=== PATIENT | female | born 1980 | race Hispanic/Latino ===

== ENCOUNTER 2017-01-25 13:12 | Day surgery (SDC) | payer MEDICAID ==
--- NOTE | 2017-01-25 14:06 | Anesthesia Consultation ---
Anesthesia Consult and Med Hx Date of service: 01/25/17 - Airway Anesthetic Teeth Evaluation: Good, Chipped (back teeth) ROM Head & Neck: Adequate Mental/Hyoid Distance: Adequate Mallampati Class: Class I Intubation Access Assessment: Probably Good - Pulmonary Exam CTA: Yes - Cardiac Exam Cardiac Exam: RRR - Pre-Operative Health Status ASA Pre-Surgery Classification: ASA3 Proposed Anesthetic Plan: General - Pulmonary Hx Smoking: Yes (1/2 PPD X 15 YRS) SOB: Yes (SOB) Hx Sleep Apnea: (RUTHIE PRE SCREEN NEGATIVE) - Cardiovascular System Hx Hypertension: Yes (MED INDUCED- STOPPED MEDS , NOW NO PROBLEMS) - Central Nervous System Hx Back Pain: Yes Hx Psychiatric Problems: Yes (depression) - Hematic Hx Anemia: Yes (HX ENLARGED SPLEEN/LYMPH NODES-GETTING FOLLOW UP) - Other Systems Hx Cancer: No - Additional Comments Anesthesia Medical History Comments: extensive surgical history. 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 2012 Bowl obstruction,x7, fixed. pelvic prolaps x4. PONV and feels like "cant breath" when wakes up from anesthesia, needs O2
--- NOTE | 2017-01-25 14:07 | Anesthesia Day of Surgery ---
Anesthesia Day of Surgery - Day of Surgery Patient Examined: Yes Patient H&P Reviewed: Yes Patient is NPO: Yes
[2017-01-25] MEDS ORDERED: DILAUDID IV ONE (14:08)
[2017-01-25] MEDS ORDERED: VERSED IV NR (15:00)
[2017-01-25] MEDS ORDERED: ANCEF/STERILE WATER 2 GM/20 ML IV NR (15:00)
[2017-01-25] MEDS ORDERED: PEPCID IV NR (15:00)
[2017-01-25] MEDS ORDERED: NACL 0.9% 1000 ML 1,000 ML IV SCH (15:00)
[2017-01-25] MEDS ORDERED: DECADRON ONE (15:23)
[2017-01-25] MEDS ORDERED: DIPRIVAN 10 MG/ML IV ONE (15:24)
[2017-01-25] MEDS ORDERED: XYLOCAINE MPF 2% ONE (15:24)
[2017-01-25] MEDS ORDERED: ZOFRAN ONE ×2 (15:24→17:37)
[2017-01-25] MEDS ORDERED: DILAUDID ONE ×2 (15:24→17:33)
[2017-01-25] MEDS ORDERED: NACL 0.9% 1000 ML 0 ML ONE (15:30)
--- NOTE | 2017-01-25 15:30 | Short Stay Summary ---
Short Stay Documentation Date of service: 01/25/17 - History H&P: obtained from office - Allergies and Medications Current Medications: Allergies hydrocodone bitartrate [From Lortab] Allergy (Verified 01/22/17 16:10) ANXIETY meperidine HCl [From Demerol] Allergy (Verified 12/03/13 10:04) Hives morphine Allergy (Verified 01/22/17 16:11) PAIN STATES DOES NOT WORK- PT REQUEST NOT TO RECEIVE Home Medications Medication Instructions Recorded Confirmed Last Taken Type oxyCODONE /ACETAMINOPHEN [Percocet 1 tab PO Q6HR PRN #20 tab 12/03/13 01/22/17 Unknown Rx 5/325 mg] Aspirin/Acetaminophen/Caffeine 1 each PO PRN PRN 01/22/17 01/22/17 Unknown History [Uzair's Ex-Str Powder Packet] Divalproex Dr [DepaKOTE DR] 250 mg PO QHS 01/22/17 01/22/17 Unknown History Ondansetron [Zofran] 4 mg PO PRN PRN 01/22/17 01/22/17 Unknown History Prochlorperazine [Compazine] 10 mg PO PRN PRN 01/22/17 01/22/17 Unknown History traZODone [Desyrel] 100 mg PO QHS 01/22/17 01/22/17 Unknown History Active Medications Cefazolin Sodium (Ancef/Sterile Water 2 Gm/20 Ml) 2 gm IV PREOP NR Stop: 01/25/17 23:59 Famotidine (Pepcid) 20 mg IV PREOP NR Stop: 01/25/17 23:59 Last Admin: 01/25/17 14:28 Dose: 20 mg Sodium Chloride (Nacl 0.9% 1000 Ml) 1,000 mls @ 125 mls/hr IV DIRECT NIKKI Last Admin: 01/25/17 14:28 Dose: 125 mls/hr Midazolam HCl (Versed) 2 mg IV PREOP NR Stop: 01/25/17 23:59 Last Admin: 01/25/17 14:30 Dose: 2 mg - Brief post op/procedure progress note Date of procedure: 01/25/17 Pre-op diagnosis: alma complete duplicate ureters, right upper pole ureter distal stone Post-op diagnosis: same Procedure: cysto, rpg; right upper pole medial/more cephalad uo stent 6x28 Anesthesia: GETA Findings: right caudad/lat uo to lower pole right cephalad/med uo to upper pole w/ hydro left more caudald/lateral uo to upperple left more cephalad/medial uo to lower pole stonel likely at junction of ureter to bladder Surgeon: RAMSEY BELTRNA Estimated blood loss: minimal Specimen disposition: to lab Condition: stable - Hospital course Hospital course: orpacuhome - Disposition Condition at discharge: Good Disposition: DISCHARGED TO HOME OR SELFCARE Short Stay Discharge Plan Activity: advance as tolerated Diet: advance as tolerated Follow up with: RAMSEY BELTRAN MD [Staff Physician] - 3 Days Prescriptions: Cefuroxime Axetil [Ceftin] 500 mg PO Q12H #14 tablet oxyCODONE /ACETAMINOPHEN [Percocet 5/325 mg] 1 tab PO Q6HR PRN #25 tablet PRN Reason: Pain
[2017-01-25] MEDS ORDERED: OMNIPAQUE 300 MG/50 ML (CATH LAB) IV ONE (16:20)
[2017-01-25] MEDS ORDERED: WATER FOR IRRIG STERILE IR ONE (16:20)
[2017-01-25] MEDS ORDERED: TORADOL ONE (17:05)
--- NOTE | 2017-01-25 17:41 | Post Anesthesia Evaluation ---
- Post Anesthesia Evaluation Patient Participated: Yes Airway Patent: Yes Stable Respiratory Function: Yes Temp > 96.8F: Yes Pain Manageable: Yes Adequeate Hydration: Yes Anesthesia Complications: No Block Receding Appropriately: Not Applicable
[2017-01-25] MEDS ORDERED: ZOFRAN IV PRN (17:44)
[2017-01-25] MEDS ORDERED: DILAUDID IV PRN (17:44)
[2017-01-25 21:14] VITALS: BP 128/86
--- NOTE | 2017-01-26 09:25 | Fluoroscopy Report ---
FLUOROSCOPIC IMAGES AT BILATERAL RETROGRADE PYELOGRAM FIFTEEN VIEWS: CLINICAL: Right ureteral stone. FINDINGS: Mower Sharpener images demonstrate a distal right ureteral calculus. Subsequent images demonstrate opacification of of a mildly dilated right intrarenal collecting system and ureter. A duplicated but otherwise normal left intrarenal collecting system and left ureter. For more detail, please refer to the operative report.
--- NOTE | 2017-01-28 14:11 | Operative Report ---
PREOPERATIVE DIAGNOSES: 1. History of vesicoureteral reflux and opened reimplantation. 2. Bilateral complete duplications of ureters. 3. Bilateral low back pain. 4. Right upper pole likely chronic hydro with minimal function. 5. Right distal ureteral stone. POSTOPERATIVE DIAGNOSES: 1. History of vesicoureteral reflux and opened reimplantation. 2. Bilateral complete duplications of ureters. 3. Bilateral low back pain. 4. Right upper pole likely chronic hydro with minimal function. 5. Right distal ureteral stone. PROCEDURE: Cystoscopy, bilateral RPGs for ureters, right stent placement to the upper pole ureter, which was more medial. Staged for future treatment of stone, staged for future stents, staged for future surgeries. CLINICAL INDICATIONS: The patient was counseled on RCBA, antibiotics, SCDs. The patient has a history of having bilateral low back pain, intermittently for over a year, but seems to be greater on the right. She does think this has been chronic. She states that she has been having possible recurrent infections over the 1-2 period of time associated with the pain. She definitely had no history of some isolated one-sided pain, presented for evaluation, was found to have ___ lower pole with good parenchyma on the right side, upper pole with minimal parenchyma. Nuclear renal scan was performed. This was evaluated with the radiologist, who felt that the upper pole had minimal to no function on the nuclear renal scan with the correlating left side being 75%, right 25% and at most has a 25% function was most likely where the parenchyma was. No hydro, which was in the lower pole of the right kidney. She was counseled on the options including nephrostomy tubes, stent placement, understands that this may not change her pain or other symptoms and understands that there may not be any recovery of function of the upper pole kidney. Options were also talked about including tertiary care evaluation, observation and other. She understands and desires to proceed. DESCRIPTION OF PROCEDURE: The patient was transferred to OR suite in supine position, anesthesia, dorsal lithotomy, prepped and draped in standard fashion. A 20-German scope passed. Pancystoscopy 30 and 70 degree lens, no tumors or lesions or other abnormality. Left UO was cannulated. There were two left ureteral orifices and two right ureteral orifices. These were more laterally displaced than the [place] ureteral orifices that were visualized likely to the surgery she had as a child for bilateral vesicoureteral reflux. At this point, the left retrograde for the more medial cephalad ureteral orifice showed no obstruction and went to a lower pole segment, the more lateral caudad ureteral orifice was injected and this went to the upper pole segment. On the left side, the upper and lower pole and ureters had no hydro or filling defects. On the right side contrast was injected in the more lateral ureteral orifice, which actually was with ro went to the lower pole with maybe some fullness on that lower pole segment, but appeared that it did seem to drain on that delayed imaging. Contrast injected to that lower pole and this was more medial cephalad ureteral orifice and this went to the upper pole ureter. This easily can, see contrast going around the stone, which was just in the bladder just above the bladder and then contrast going above. A Glidewire was passed up to the upper pole. There was no debris or infection noted. A 5-German open-ended catheter was passed in the upper pole and aspirated. There was no significant debris or infectious debris at all. At this point, the wire was placed, confirmed our position with contrast, which had been injected into the system after initially we aspirated approximately 30 plus mL right out of the right upper pole system and then injected some contrast. Glidewire was placed. A 5-German open-ended removed. A 6 x 20 double J was passed over the wire under direct and fluoroscopic visualization. When wire and string was removed, nice proximal and distal J. Distal ports seemed to be effluxing contrast. At this point, the bladder was drained. Exam under anesthesia, no palpable urethral masses. The patient awakened and transferred to the PACU in good and stable condition. JOB# [id number] ATS/NTS
== END 2017-01-25 18:50 | disposition home or self-care (01) ==
LOC: OR 13:12
PROVIDERS: ATTEND Urology
DX: N20.1 Calculus of ureter (principal); Q62.5 Duplication of ureter; I10 Essential (primary) hypertension; F32.9 Major depressive disorder, single episode, unspecified; F17.210 Nicotine dependence, cigarettes, uncomplicated; D64.9 Anemia, unspecified; Z87.440 Personal history of urinary (tract) infections; Z88.5 Allergy status to narcotic agent; Z98.890 Other specified postprocedural states; Z79.899 Other long term (current) drug therapy; Z80.42 Family history of malignant neoplasm of prostate; Z80.1 Family history of malignant neoplasm of trachea, bronchus and lung; Z80.0 Family history of malignant neoplasm of digestive organs; Z80.49 Family history of malignant neoplasm of other genital organs
CPT/HCPCS: 52332; 74420; 81025; 87086; A4217; C1726; C1758; C1769; C2617; J0690; J1100; J1170; J1885; J2250; J2405; J2704; J7030; Q9967

== ENCOUNTER 2017-01-31 20:37 | Emergency (ER) | payer MEDICAID ==
[2017-01-31 21:57] LABS: Basophils % (Auto) 0.8 % (0.0-1.8); Eosinophils % (Auto) 1.3 % (0.0-4.3); Hematocrit 45.5 % (30.3-42.9); Hemoglobin 14.8 gm/dl (10.1-14.3); Mean Corpuscular HGB Conc 33 % (30-34); Mean Corpuscular Hemoglobin 27 pg (28-32); Mean Corpuscular Volume 83 fl (79-97); Platelet Count 239 K/mm3 (140-440); Red Blood Count 5.49 M/mm3 (3.65-5.03); Red Cell Distribution Width 14.3 % (13.2-15.2); White Blood Count 7.4 K/mm3 (4.5-11.0)
[2017-01-31 22:04] LABS: Alanine Aminotransferase 9 units/L (7-56); Albumin 4.6 g/dL (3.9-5); Albumin/Globulin Ratio 1.4 %; Alkaline Phosphatase 63 units/L (35-129); Anion Gap 17 mmol/L; Blood Urea Nitrogen 11 mg/dL (7-17); Calcium 9.4 mg/dL (8.4-10.2); Carbon Dioxide 26 mmol/L (22-30); Chloride 97.8 mmol/L (98-107); Glucose 107 mg/dL (65-100); Lipase 15 units/L (13-60); Potassium 3.8 mmol/L (3.6-5.0); Sodium 137 mmol/L (137-145); Total Protein 7.9 g/dL (6.3-8.2)
[2017-01-31 23:06] LABS: Bacteria,Urine 2+ /HPF (Negative); Bilirubin,Urine NEG (Negative); Blood,Urine LG (Negative); Ketones,Urine TR mg/dL (Negative); Leukocyte Esterase,Urine MOD (Negative); Mucus,Urine 2+ /HPF; Nitrite,Urine NEG (Negative); Urobilinogen,Urine < 2.0 mg/dL (<2.0)
[2017-01-31 23:08] LABS: RBC,Urine > 182.0 /HPF (0.0-6.0); WBC,Urine > 182.0 /HPF (0.0-6.0)
[2017-02-01] MEDS ORDERED: DILAUDID IV ONE ×2 (06:26→09:00)
[2017-02-01] MEDS ORDERED: ZOFRAN IV ONE (06:26)
--- NOTE | 2017-02-01 06:45 | Emergency Department Report ---
HPI - General Chief Complaint: Urogenital-Female Time Seen by Provider: 02/01/17 06:11 - HPI HPI: This is a 36-year-old who presents to the emergency department with complaint of extreme right flank pain. The patient has a history of a 10 mm stone found about 2 weeks ago. She says that she has a history of congenital double ureters and had a stent placement done on that right side by Dr. Dykes, her urologist, on January 25. However, the patient says that yesterday the pain increased in intensity to 10 out of 10. It worsens with urination and the patient says that she sees gross blood in the urine. She took a Percocet for her discomfort without any relief. She is currently on cefuroxime for antibiotics. She denies any fever, vaginal bleeding or discharge but certainly has dysuria. She is supposed to have her next surgery done this coming but says she cannot wait that long as the pain has increased. She called the urology office and was told to come [facility]. ED Past Medical Hx - Past Medical History Hx Hypertension: Yes (MED INDUCED- STOPPED MEDS , NOW NO PROBLEMS) Hx Headaches / Migraines: Yes (MIGRAINES) Hx Kidney Stones: Yes (BILATERAL) Additional medical history: intestinal blockage x 5 - Surgical History Additional Surgical History: 82% of intestine removed in 2010 - Social History Smoking Status: Never Smoker Substance Use Type: None - Medications Home Medications: Home Medications Medication Instructions Recorded Confirmed Last Taken Type oxyCODONE /ACETAMINOPHEN [Percocet 1 tab PO Q6HR PRN #20 tab 12/03/13 01/25/17 Unknown Rx 5/325 mg] Aspirin/Acetaminophen/Caffeine 1 each PO PRN PRN 01/22/17 01/25/17 01/24/17 20: 00 History [Uzair's Ex-Str Powder Packet] Divalproex Dr [Ora KILLIAN] 250 mg PO QHS 01/22/17 01/25/17 01/24/17 20:00 History Ondansetron [Zofran] 4 mg PO PRN PRN 01/22/17 01/25/17 01/24/17 20:00 History Prochlorperazine [Compazine] 10 mg PO PRN PRN 01/22/17 01/25/17 01/24/17 20:00 History traZODone [Desyrel] 100 mg PO QHS 01/22/17 01/25/17 01/24/17 20:00 History Cefuroxime Axetil [Ceftin] 500 mg PO Q12H #14 tablet 01/25/17 Unknown Rx oxyCODONE /ACETAMINOPHEN [Percocet 1 tab PO Q6HR PRN #25 tablet 01/25/17 Unknown Rx 5/325 mg] ED Review of Systems ROS: Stated complaint: STINT COMPLICATIONS/BLEEDING Other details as noted in HPI Comment: All other systems reviewed and negative Constitutional: denies: chills, fever Eyes: denies: eye pain, eye discharge, vision change Respiratory: denies: cough, shortness of breath, wheezing Cardiovascular: denies: chest pain, palpitations Gastrointestinal: abdominal pain (right flank pain), nausea. denies: vomiting Genitourinary: dysuria, hematuria Musculoskeletal: denies: joint swelling, arthralgia Neurological: denies: headache, weakness, paresthesias Physical Exam - Physical Exam Vital Signs: Vital Signs 01/31/17 02/01/17 02/01/17 21:27 04:56 06:15 Temperature 98.0 F 97.7 F Pulse Rate 111 H 97 H Respiratory 15 14 19 Rate Blood Pressure 126/93 Blood Pressure 125/86 [Right] O2 Sat by Pulse 99 97 99 Oximetry 02/01/17 06:24 Temperature 98.1 F Pulse Rate 104 H Respiratory 15 Rate Blood Pressure Blood Pressure 128/92 [Right] O2 Sat by Pulse 98 Oximetry Physical Exam: GENERAL: The patient is well-developed well-nourished. HEENT: Normocephalic. Atraumatic. Extraocular motions are intact. Patient has moist mucous membranes. Pupils equal reactive to light bilaterally. NECK: Supple. Trachea is midline. CHEST/LUNGS: Clear to auscultation. There is no respiratory distress noted. HEART/CARDIOVASCULAR: Regular. There is mild tachycardia. There is no gallop rub or murmur. ABDOMEN: Abdomen is soft. Patient is in discomfort but no tenderness to palpation. No guarding or rebound tenderness. Patient has normal bowel sounds. There is no abdominal distention. SKIN: Skin is warm and dry. NEURO: The patient is awake, alert, and oriented. The patient is cooperative. The patient has no focal neurologic deficits. The patient has normal speech. MUSCULOSKELETAL: There is no tenderness or deformity. There is no limitation range of motion. There is no evidence of acute injury. BACK: No midline thoracic or lumbar tenderness to palpation or deformity. Positive right CVA tenderness to palpation. ED Course Vital Signs 01/31/17 02/01/17 02/01/17 21:27 04:56 06:15 Temperature 98.0 F 97.7 F Pulse Rate 111 H 97 H Respiratory 15 14 19 Rate Blood Pressure 126/93 Blood Pressure 125/86 [Right] O2 Sat by Pulse 99 97 99 Oximetry 02/01/17 06:24 Temperature 98.1 F Pulse Rate 104 H Respiratory 15 Rate Blood Pressure Blood Pressure 128/92 [Right] O2 Sat by Pulse 98 Oximetry - Consultations Consultation #1: I spoke with after his initial, the urologist personnel director for Dr. Dykes, who says that the patient does not require admission for the CT findings and vitals and lab results and he recommends that the patient go straight to the office where Dr. Dykes will be all day and that they will take care of her. 02/01/17 09:01 ED Medical Decision Making - Lab Data Result diagrams: 01/31/17 21:33 01/31/17 21:33 - Radiology Data Radiology results: report reviewed CT of the abdomen and pelvis without contrast shows interval right ureteral stent placement with at least 2 small right distal ureteral calcifications noted adjacent to the stent. No significant ureteral dilatated show an, though mid right intrarenal collecting system fullness/hydronephrosis superiorly now seen with interval development of right renal atrophy/cortical thinning. Numerous small bilateral renal calculi. - Medical Decision Making This is a 36-year-old female who presents the emergency department with some hematuria, right flank pain and a known right ureter stone of about 1 cm. She recently had a stent placed by her urologist. Since the pain has increased today with increased hematuria, the patient had a reevaluation here including a CT of the abdomen and pelvis without contrast. The CT results show some right ureter stones that appear adjacent to the placed interval stent and some proximal hydronephrosis. On labs she does not have a leukocytosis or any renal insufficiency but her urinalysis does show a urinary tract infection with significant hematuria. She is already on antibiotics from urology and says that she has a resistance to most. I spoke with Dr. Sifuentes who did not feel that this patient required admission but recommended the patient go directly to Dr. Dykes's office today. Patient was given some pain and nausea control and we discussed her labs and imaging results and the plan for immediate follow-up with Dr. Dykes and the patient understands and agrees to the plan. She is currently waiting for her mother to pick her up to take her to urology. There is some mild tachycardia but otherwise vital signs up in stable throughout her ED course including being afebrile. - Differential Diagnosis nephrolithiasis, hydronephrosis, pyelonephritis, Critical Care Time: No Critical care attestation.: If time is entered above; I have spent that time in minutes in the direct care of this critically ill patient, excluding procedure time. ED Disposition Clinical Impression: Right flank pain, Hematuria, Renal colic on right side, Nephrolithiasis Disposition: DISCHARGED TO HOME OR SELFCARE Is pt being admited?: No Condition: Stable Instructions: Kidney Stones (ED), Urinary Tract Infection in Women (ED), Renal Colic (ED), Acute Hematuria (ED) Additional Instructions: At the recommendation of the urologist, Dr. Dr. Sifuentes, please follow-up with Dr. Dykes today without fail. Return to the emergency department with any acute distress. Please call and find out which office he is currently at. Referrals: RAMSEY BELTRAN MD [Staff Physician] - 02/01/17 Time of Disposition: 09:37
--- NOTE | 2017-02-01 07:57 | Cat Scan Report ---
CT ABDOMEN AND PELVIS WITHOUT CONTRAST INDICATION: Right flank pain. History of stones. COMPARISON: 12/03/2013 FINDINGS: Noncontrast abdomen and pelvis CT performed. LUNG BASES: Nonspecific distal esophageal wall prominence/thickening, not excluded for gastroesophageal reflux and/or hiatal hernia, amongst others. ABDOMEN: Please note that sensitivity to detect small visceral lesions is limited due to the absence of intravenous or oral contrast. New right double-J ureteral stent with the proximal end coiled near the ureteropelvic junction while the distal end in the urinary bladder. At least 2 faint calcifications along the right distal ureter adjacent to the stent noted, the larger approximately 6 mm, axial image 309, series 2 while the smaller is approximately 3-4 mm, axial image 295. No abnormal right ureteral dilatation. Interval right renal atrophy/cortical thinning has developed, more so superiorly. Mild intrarenal collecting system fullness/hydronephrosis is also somewhat more pronounced involving the upper pole collecting system as on axial image 135, series 2. Mild right renal malrotation and an extrarenal pelvis again noted. Stable left renal appearance without hydronephrosis. Numerous small bilateral renal calculi/calcifications noted, the largest on the right approximately 4 mm, axial image 173 and approximately 3 mm left interpolar, axial image 140. Grossly unremarkable, stable, unenhanced liver, spleen, gallbladder, pancreas, adrenals, aorta and IVC. No ascites or significant adenopathy. Nonopacified GI tract evaluation limited, though grossly nonobstructive. PELVIS: Uterus again appears retroverted with a satisfactorily positioned IUD. Vaginal air surrounds the cervix as on axial image 343, amongst others. Otherwise grossly unremarkable unopacified urinary bladder and the rectosigmoid. No free fluid or definite significant adenopathy. Mild to moderate lumbar levoscoliosis apex about L2-L3. CONCLUSION: 1. Interval right ureteral stent placement with at least 2 small right distal ureteral calcifications noted adjacent to the stent, as described. No significant ureteral dilatation, though mild right intrarenal collecting system fullness/hydronephrosis superiorly now seen with interval development of right renal atrophy/cortical thinning. Please correlate. 2. Numerous small bilateral renal calculi. 3. Various other incidental findings, as above. Thank you for the opportunity to participate in this patient's care.
[2017-02-01 11:02] VITALS: BP 120/70
== END 2017-02-01 11:19 | disposition home or self-care (01) ==
LOC: ED 20:37
DX: N20.0 Calculus of kidney (principal); N23 Unspecified renal colic; I10 Essential (primary) hypertension; G43.909 Migraine, unspecified, not intractable, without status migrainosus
CPT/HCPCS: 36415; 74000; 74176; 80053; 81001; 83690; 84703; 85025; 87086; 96374; 96375; 96376; 99284; J1170; J2405